=== PATIENT | male | born 1980 | race Caucasian/White ===

== ENCOUNTER 2016-10-11 17:17 | Emergency (ER) | payer OTHER ==
[~2016-10-11] VITALS: Ht 167.6 cm; Wt 83.9 kg
[~2016-10-11 17:17] MED LIST: BENADRYL PO; LIDO PO; MAALOX PO
--- NOTE | 2016-10-11 19:08 | ED UPPER/LOWER EXTREMITY COMPL ---
History of Present Illness General Chief Complaint: Lower Extremity Problems Stated Complaint: NUMBNESS TO LEFT LEG Source: patient Exam Limitations: no limitations Vital Signs & Intake/Output Vital Signs & Intake/Output Vital Signs Date Time Temp Pulse Resp B/P Pulse O2 O2 Flow FiO2 Ox Delivery Rate 10/11 2124 96.5 69 20 112/79 98 Room Air 10/112 Room Air Room Air 10/11 1800 98.1 85 16 122/87 96 Room Air Allergies Coded Allergies: NO KNOWN ALLERGIES (10/08/11) Reconcile Medications [Benadryl/Lido/Maalox] 5 ML ORAL.SUSP 5 ML PO TID PRN SORE THROAT SWISH AND SWALLOW Triage Note: RECEIVED 35 YO MALE C/O LEFT HIP PAIN RADIATING DOWN LEFT LEG WITH LEG NUMBNESS X 3 TO 4 DAYS. LEFT UPPER POST THIGH TENDER TO TOUCH. PT ALSO REPORTS INTERMITTENT RIGHT SHOULDER PAIN AND NUMBESS. Triage Nurses Notes Reviewed? yes HPI: Patient presents for evaluation of a constant numbness and pain to the left leg that began about 3 or 4 days ago, gradual in onset. The pain is moderate in intensity but seems to fluctuate. He is also experiencing some relatively point tenderness over the lateral left hip. He states he's had milder episodes like this in the past but this seems to be the most severe. Nothing seems to make it feel better or worse. There has been no associated trauma. Patient is a fuel truck driver. He contacted the nurse in his doctor's office who told him to go to the emergency department for the possibility of a blood clot. Patient denies redness or swelling of the left leg. Past History Travel History Traveled to [place] past 21 day No Medical History Any Pertinent Medical History? see below for history Neurological: NONE EENT: NONE Cardiovascular: NONE Respiratory: NONE Gastrointestinal: NONE Hepatic: NONE Renal: NONE Musculoskeletal: NONE Psychiatric: NONE Endocrine: NONE Blood Disorders: NONE Cancer(s): NONE Tetanus Vaccine: 03/29/12 Surgical History Surgical History: non-contributory Psychosocial History What is your primary language [place] Tobacco Use: Never used Family History Hx Contributory? No Review of Systems Review of Systems Constitutional: Reports: no symptoms. EENTM: Reports: no symptoms. Respiratory: Reports: no symptoms. Cardiovascular: Reports: no symptoms. Gastrointestinal/Abdominal: Reports: no symptoms. Genitourinary: Reports: no symptoms. Musculoskeletal: Reports: no symptoms. Skin: Reports: no symptoms. Neurological/Psychological: Reports: no symptoms. Hematologic/Endocrine: Reports: no symptoms. Immunological: Reports: no symptoms. All Other Systems: Reviewed and Negative Physical Exam Physical Exam General Appearance: see below Comments: Gen.: Well-nourished, well-developed, no acute respiratory distress. Head: Normocephalic, atraumatic. Eyes: Normal inspection bilaterally Ears: Normal inspection bilaterally Nose: Normal inspection, nasal cannula in place Throat/mouth : Moist mucosa Neck: Supple, full range of motion, no goiter Heart: Regular rate and rhythm Lungs: Quiet respirations Back: Normal range of motion Extremities: Left lower extremity: No redness or edema. Calf and thigh nontender. No tenderness with range of motion of the left hip. There is tenderness over the lateral aspect of the left hip with palpation but no associated ecchymoses or soft tissue swelling. There is no erythema in this area either. There are no rashes in this area. Left lower extremity is neurovascularly intact. Neurologic: Cranial nerves grossly intact, speech is clear Skin: warm and dry Psychiatric: Calm, cooperative, no apparent delusions or hallucinations Progress Differential Diagnosis: DVT, sciatica Plan of Care: Current Medications Sig/Amina Start time Last Medication Dose Stop Time Status Admin Naproxen 500 MG ONCE ONE 10/11 2129 UNVr (Naprosyn) 10/11 2130 Diagnostic Imaging: Discussed w/RAD: Radiology Read, Ultrasound. Radiology Impression: PATIENT: AARON MCARTHUR PRESENT AGE: 35 PATIENT ACCOUNT NO: [id number] : 82 LOCATION: [facility] ORDERING PHYSICIAN: ABELARDO HANCOCK MD SERVICE DATE: 10/11/16 EXAM TYPE: RAD - XRY-HIP 2-3 VIEWS, LEFT EXAMINATION: XR HIP, LEFT CLINICAL INFORMATION: Left lower extremity and hip pain. COMPARISON: None TECHNIQUE: Two views of the left hip. FINDINGS: No acute fracture or dislocation is seen. No degenerative changes are evident. The imaged bony pelvis is normal. The soft tissues are unremarkable. IMPRESSION: Normal left hip. DICTATED BY: MATHIEU PINO MD DATE /TIME DICTATED:10/11/162017 [employer]PER[employer] MA[employer]:DONALD DATE/TIME TRANSCRIBED: 10/11/162017 CONFIDENTIAL, DO NOT COPY WITHOUT APPROPRIATE AUTHORIZATION. < Electronically signed in Other Vendor System> SIGNED BY: MATHIEU PINO MD 10/11/162021, PATIENT: AARON MCARTHUR PRESENT AGE: 35 PATIENT ACCOUNT NO: [id number] : 82 LOCATION: [facility] ORDERING PHYSICIAN: ABELARDO HANCOCK MD SERVICE DATE: 10/11/16 EXAM TYPE: US - US- UNILATERAL VENOUS DOPPLER EXAMINATION: US TRIPLEX LOWER EXTREMITY, LEFT CLINICAL INFORMATION: Left lower extremity pain and numbness. COMPARISON: None TECHNIQUE: Color-flow triplex imaging with spectral analysis and compression Doppler were performed on the left lower extremity. FINDINGS: Respiratory variation, normal compression and augmented flow are noted throughout the lower extremity. The visualized common femoral vein, superficial femoral vein, profunda femoral vein, popliteal vein and midcalf peroneal and posterior tibial venous segments show no evidence of deep venous thrombosis. There is no Busch's cyst. IMPRESSION: Normal triplex scan without evidence of deep venous thrombosis involving the left lower extremity. DICTATED BY: MATHIEU PINO MD DATE/TIME DICTATED:10/11/162107 SUPER[employer]KING:DONALD DATE/TIME TRANSCRIBED:10/11/162107 CONFIDENTIAL, DO NOT COPY WITHOUT APPROPRIATE AUTHORIZATION. <Electronically signed in Other Vendor System> SIGNED BY: MATHIEU PINO MD 10/11/162111 Comments: 10/11/2016 9:26:14 PM I have updated aaron on his test results. Plan treatment with an anti-inflammatory for bursitis and/or sciatica. Departure Departure Disposition: HOME OR SELF CARE Condition: Stable Clinical Impression Primary Impression: Left leg paresthesias Referrals: KONRAD MORTON DO (PCP/Family) Additional Instructions: Diclofenac as prescribed for leg pain. Follow-up with your primary care doctor on Sunday for reevaluation. Avoid any activities that aggravate your symptoms. Return if any concerns or sudden worsening. Thank you for choosing the [facility] for your care. It was a pleasure to serve you today. Abelardo Hancock M.D. [facility] Departure Forms: Customer Survey General Discharge Information
--- NOTE | 2016-10-11 20:22 | RADIOLOGY REPORT ---
EXAMINATION: XR HIP, LEFT CLINICAL INFORMATION: Left lower extremity and hip pain. COMPARISON: None TECHNIQUE: Two views of the left hip. FINDINGS: No acute fracture or dislocation is seen. No degenerative changes are evident. The imaged bony pelvis is normal. The soft tissues are unremarkable. IMPRESSION: Normal left hip.
--- NOTE | 2016-10-11 21:12 | ULTRASOUND REPORT ---
EXAMINATION: US TRIPLEX LOWER EXTREMITY, LEFT CLINICAL INFORMATION: Left lower extremity pain and numbness. COMPARISON: None TECHNIQUE: Color-flow triplex imaging with spectral analysis and compression Doppler were performed on the left lower extremity. FINDINGS: Respiratory variation, normal compression and augmented flow are noted throughout the lower extremity. The visualized common femoral vein, superficial femoral vein, profunda femoral vein, popliteal vein and midcalf peroneal and posterior tibial venous segments show no evidence of deep venous thrombosis. There is no Busch's cyst. IMPRESSION: Normal triplex scan without evidence of deep venous thrombosis involving the left lower extremity.
[2016-10-11 21:25] VITALS: BP 112/79
[2016-10-11] MEDS ORDERED: DICLOFENAC POTA50 M1 PO ×2 (21:49→22:00)
== END 2016-10-11 22:02 ==
LOC: ERH 17:17
DX: R20.2 Paresthesia of skin (principal)
CPT/HCPCS: 73502-LT

== ENCOUNTER 2016-12-20 07:26 | Emergency (ER) | payer OTHER ==
[~2016-12-20] VITALS: Ht 167.6 cm; Wt 83.9 kg
[~2016-12-20 07:26] MED LIST changes: +DICLOFENAC POTA50 M1 PO
[2016-12-20 07:33] VITALS: BP 132/84
--- NOTE | 2016-12-20 07:43 | ED EYE COMPLAINT ---
History of Present Illness General Chief Complaint: Eye Problems Stated Complaint: PER PT "SWOLLEN EYES,DISCHARGE IN BOTH EYES" Source: patient Exam Limitations: no limitations Vital Signs & Intake/Output Vital Signs & Intake/Output Vital Signs Date Time Temp Pulse Resp B/P B/P Pulse O2 O2 Flow FiO2 Mean Ox Delivery Rate 12/20 0733 96.9 85 18 132/84 100 Room Air Allergies Coded Allergies: NO KNOWN ALLERGIES (10/08/11) Reconcile Medications Polytrim (Polytrim Eye Drops) 10,000 UNIT-1 MG/ML DROPS 1 GTT OPH Q6 conjunctivitis Triage Note: PT TO ED FOR RED, ITCHY EYES WITH COPIOUS DISCHARGE. Triage Nurses Notes Reviewed? yes Onset: Afternoon Duration: day(s): (2) HPI: This is a 36-year-old male presents the ER chief complaint of bilateral eye redness, tearing and yellow discharge for 2 days. He initially had a sore throat 2 days ago. Patient reports similar symptoms in both of his children last week. Denies any cough or shortness of breath. Denies any eye pain. He states when the discharge is significant and feels slightly blurred. He is not a contact lens wearer. Past History Travel History Traveled to [place] past 21 day No Medical History Any Pertinent Medical History? see below for history Neurological: NONE EENT: NONE Cardiovascular: NONE Respiratory: NONE Gastrointestinal: NONE Hepatic: NONE Renal: NONE Musculoskeletal: NONE Psychiatric: NONE Endocrine: NONE Blood Disorders: NONE Cancer(s): NONE Tetanus Vaccine: 03/29/12 Surgical History Surgical History: non-contributory Psychosocial History What is your primary language [facility] Tobacco Use: Never used ETOH Use: occasional use Illicit Drug Use: denies illicit drug use Family History Hx Contributory? No Review of Systems Review of Systems Constitutional: Denies: chills, fever. Eyes: Reports: drainage, photophobia. Ear: Reports: no symptoms. Nose: Denies: epistaxis. Mouth: Denies: pain. Throat: Reports: pain. Respiratory: Denies: cough, short of breath, sputum production. Cardiovascular: Denies: chest pain, palpitations. GI: Reports: no symptoms. Genitourinary: Reports: no symptoms. Musculoskeletal: Reports: no symptoms. Skin: Reports: no symptoms. Neurological/Psychological: Denies: anxiety, ataxia, cognitive dysfunction. Hematologic/Endocrine: Denies: bruising, bleeding, polyuria, polydipsia. Immunologic/Allergic: Denies: splenectomy. All Other Systems: Reviewed and Negative Physical Exam General Appearance: well developed/nourished, mild distress General Inspection: normal inspection Eyelid: erythema Conjunctiva/Sclera: normal inspection, see diagram, injected Cornea: examined w/fluorescein General Inspection: normal inspection Eyelid: normal inspection, everted for exam, erythema Conjunctiva/Sclera: injected Cornea: examined w/fluorescein Physical Exam Head: atraumatic Nose: normal inspection Neck: normal inspection, supple Cardiovascular/Respiratory: normal breath sounds, regular rate/rhythm Neurologic/Psych: awake, alert, oriented x 3, normal mood/affect Skin: intact, normal color, warm/dry Comments: Visual Acuity Exam Right Eye: 20/ 50 Left Eye: 20/ 25 Comment BOTH EYES: 20/25 Progress Differential Diagnosis: conjunctivitis Plan of Care: TOPICAL ABX DROPS, OPTHO FOLLOW UP Departure Departure Time of Disposition: 752 Disposition: HOME OR SELF CARE Condition: Stable Clinical Impression Primary Impression: Conjunctivitis Referrals: KONRAD MORTON DO (PCP/Family) Additional Instructions: TAKE THE POLYTRIM DROPS DIRECTED FOLLOW UP WITH YOUR EYE DOCTOR OR THE ONE LISTED RETURN NEEDED Departure Forms: Customer Survey General Discharge Information Prescriptions: Current Visit Scripts Polytrim (Polytrim Eye Drops) 1 GTT OPH Q6 #10 ML
[2016-12-20] MEDS ORDERED: POLYTRIM EYE DR10 ML OPH (07:53)
== END 2016-12-20 08:04 ==
LOC: ERH 07:26
DX: H10.9 Unspecified conjunctivitis (principal)